=== PATIENT | female | born 1950 | race Caucasian/White ===

== ENCOUNTER 2025-02-22 17:18 | Emergency (ER) | payer MEDICARE, OTHER ==
[~2025-02-22 17:18] MED LIST: Iopamidol-370 76% 500 ML MDV (1 ML CHARGE) ONE
[2025-02-22 20:53] LABS: #Basophils 0.10 10x3/uL (0.0-0.2); #Eosinophils 0.09 10x3/uL (0.0-0.7); #Monocytes 0.94 10x3/uL (0.11-0.59); #Neutrophils 11.49 10x3/uL (1.40-6.50); %Basophils 0.7 % (0.0-1.0); %Eosinophils 0.6 % (0.0-10.0); %Lymphocytes 9.5 % (21.0-51.0); %Monocytes 6.5 % (0.0-10.0); %Neutrophils 80.1 % (42.0-75.0); Hematocrit 37.2 % (36.0-47.0); Hemoglobin 12.2 g/dL (12.0-16.0); Mean Corpuscular Hemoglobin 28.8 pg (27.0-31.0); Mean Corpuscular Volume 87.7 fL (78.0-98.0); Platelet Count 194 10x3/uL (130-400); Red Blood Cell (RBC) Count 4.24 mill/uL (4.20-5.40); White Blood Cell (WBC) Count 14.36 10x3/uL (4.8-10.8)
[2025-02-22 21:07] LABS: ALT (SGPT) 18 U/L (Less than 34); AST (SGOT) 23 U/L (11-34); Albumin 3.5 g/dL (3.1-4.5); Alkaline Phosphatase 111 U/L (40-110); Anion Gap 17 mmol/L (10-20); BUN (Urea Nitrogen) 14 mg/dL (9.8-20.1); Bilirubin, Total 0.6 mg/dL (0.3-1.2); Calc. Creatinine Clearance 0 mL/min (70-130); Calcium 9.6 mg/dL (7.8-10.44); Carbon Dioxide 23 mmol/L (23-31); Chloride 98 mmol/L (98-107); Globulin 4.5 g/dL (2.4-3.5); Glucose 87 mg/dL (83-110); Lipase 19 U/L (8-78); Potassium 3.8 mmol/L (3.5-5.1); Sodium 134 mmol/L (136-145)
[2025-02-22] MEDS ORDERED: Amoxicillin/Potassium Clav 875 MG TAB ONE (22:51)
[2025-02-22 23:05] LABS: Bacteria/HPF None Seen HPF (None Seen); CAUTI Indications for Culture Dysuria,urgency,freq; Glucose, Urine (Dipstick) Normal (Negative); Leukocyte 25 Leu/uL (Negative); Protein, Urine (Dipstick) Negative (Neg-Trace); RBC/HPF 0-3 HPF (0-3); Specific Gravity, Urine 1.012 (1.002-1.036); WBC/HPF 0-3 HPF (0-3)
[2025-02-22 23:06] LABS: Urine Culture Reflex No No
== END 2025-02-22 23:00 | disposition home or self-care (01) ==
LOC: ERS 17:18
DX: K57.32 Diverticulitis of large intestine without perforation or abscess without bleeding (principal); K52.9 Noninfective gastroenteritis and colitis, unspecified; I10 Essential (primary) hypertension; Z55.6 Problems related to health literacy; Z87.891 Personal history of nicotine dependence
CPT/HCPCS: 74177; 80053; 81001; 83605; 83690; 85025; J2919; Q9967; 96374